=== PATIENT | female | born 1965 | race Caucasian/White ===

== ENCOUNTER 2023-03-10 13:41 | Outpatient (OUT) | payer BC, SELFPAY | END 2023-03-10 13:42 | disposition home or self-care (01) | LOC: PST 13:41 | PROVIDERS: PCP Internal Medicine; Visit Provider Surgery | DX: Z01.818 Encounter for other preprocedural examination (principal); Z12.11 Encounter for screening for malignant neoplasm of colon ==

== ENCOUNTER 2023-03-18 06:59 | Day surgery (SDC) | payer BC, SELFPAY ==
--- NOTE | 2023-03-18 | OP_ITS ---
OPERATION DATE: ??03/18/2023 PREOPERATIVE DIAGNOSIS:? Colorectal screening. POSTOPERATIVE DIAGNOSIS:? Hypertrophic anal papilla. PROCEDURE:? Colonoscopy to cecum. SURGEON:? Dell Strange M.D. ANESTHESIA:? Monitored anesthesia care. ESTIMATED BLOOD LOSS:? Zero. INDICATIONS AND CONSENT:? Patient is a 57-year-old male presents for colorectal screening.? Indications, risks, benefits, alternatives of proceeding with colonoscopy were explained extensively to the patient, including the risks of bleeding, colon perforation or anesthetic complications.? All of her questions were answered.? Informed consent was obtained. PROCEDURE:? Patient brought to the operating room, placed in the left lateral decubitus position.? Monitored anesthesia care was provided.? Rectal exam was performed which showed no masses or blood.? The scope was inserted into the anal canal.? Under direct visualization was advanced.? It was advanced to the cecum, with the aid of abdominal compression.? There was noted to be a fair prep with some liquid brown stool and semi-solid stool throughout the colon that was partially irrigated clear.? Cecal marking were clearly identified.? Upon withdrawal of the scope, mucosal surfaces were carefully examined.? There were no mass lesions or polyps.? No inflammatory changes or ulcerations.? No significant diverticulosis.? The scope was retroflexed in the anal canal.? There was noted to be an elongated hypertrophic anal papilla without inflammation or bleeding, some prominent rectal veins.? The scope was then withdrawn.? Patient tolerated the procedure well, was sent to recovery room in good condition. f/u screening colonoscopy should be in 10 years. CC:? Dr. Matt BALLARD
[2023-03-18 07:22] VITALS: BP 123/70; PULSE 89; RESP 16; TEMP 36.2; O2SAT 97; BMI 35.7
[2023-03-18 07:29] LABS: Glucometer 225 mg/dL (74-106)
[2023-03-18] MEDS: LACTATED RINGER'S SOLUTION 1,000 ML 50 ML IV (07:29)
--- NOTE | 2023-03-18 08:36 | PC.NURSE ---
Dr. Strange aware of pre-op blood glucose. No new orders received.
[2023-03-18 09:03] VITALS: BP 89/64; PULSE 80; RESP 16; O2SAT 96
[2023-03-18 09:17] VITALS: BP 82/66; PULSE 89; RESP 16; O2SAT 97
[2023-03-18 09:33] VITALS: BP 100/74; PULSE 84; RESP 16; O2SAT 97
== END 2023-03-18 09:33 | disposition home or self-care (01) ==
PROVIDERS: PCP Internal Medicine; Visit Provider Surgery
PROC: (CPT 45378; principal; 2023-03-18 08:20)
DX: Z12.11 Encounter for screening for malignant neoplasm of colon (principal); I10 Essential (primary) hypertension; F41.1 Generalized anxiety disorder; K21.9 Gastro-esophageal reflux disease without esophagitis; E78.2 Mixed hyperlipidemia; E66.9 Obesity, unspecified; Z68.37 Body mass index [BMI] 37.0-37.9, adult; E11.9 Type 2 diabetes mellitus without complications; Z79.82 Long term (current) use of aspirin; Z87.891 Personal history of nicotine dependence; Z90.710 Acquired absence of both cervix and uterus; Z79.4 Long term (current) use of insulin; D12.9 Benign neoplasm of anus and anal canal
CPT/HCPCS: 45378; 36415; 82948; J2704

== ENCOUNTER 2023-09-10 07:58 | Outpatient (OUT) | payer BC, SELFPAY ==
[2023-09-10 11:48] LABS: Glycohemoglobin A1C >14.0 % (4.5-6.2)
== END 2023-09-10 07:59 | disposition home or self-care (01) ==
LOC: LAB 07:59
PROVIDERS: PCP Internal Medicine; Visit Provider Internal Medicine
DX: E11.65 Type 2 diabetes mellitus with hyperglycemia (principal)
CPT/HCPCS: 36415; 83036

== ENCOUNTER 2024-01-13 08:24 | Outpatient (OUT) | payer BC, SELFPAY ==
[2024-01-13 11:31] LABS: Estimated Average Glucose 163 mg/dL; Glycohemoglobin A1C 7.3 % (4.5-6.2)
== END 2024-01-13 08:25 | disposition home or self-care (01) ==
LOC: LAB 08:26
PROVIDERS: PCP Internal Medicine; Visit Provider Internal Medicine
DX: E11.65 Type 2 diabetes mellitus with hyperglycemia (principal)
CPT/HCPCS: 36415; 83036

== ENCOUNTER 2024-10-14 07:45 | Outpatient (OUT) | payer BC, SELFPAY ==
--- NOTE | 2024-10-14 08:08 | MM_ITS ---
Patient Name: ALMA ROSA PORTILLO MR#: [id number] : 1965 Exam Date: 10/14/2024 Ordering Doctor: DR ERON RIZZO D.O. RADIOLOGY REPORT PROCEDURE: MM TOMOSYNTHESIS SCREENING BI COMPARISON: MG MAMM SCREEN ASHA W CAD, 04/21/2019. MG MAMM SCREEN ASHA W CAD, 04/09/2018. MG MAMM SCREEN ASHA W CAD, 03/25/2017. INDICATIONS: Screenig Calculator Name NCI Breast Cancer Risk Assessment Tool 5 Year Breast Cancer Risk 1.70% Lifetime Breast Cancer Risk 8.70% Personal Breast Cancer No Personal Ovarian Cancer No Treatments None Family Cancers Mother with ovarian cancer at age 82; Father with leukemia cancer at age 59. LOCATION: [facility] [place] BREAST COMPOSITION: There are scattered areas of fibroglandular density. FINDINGS: DIAGNOSTIC CATEGORY 1--NEGATIVE. RIGHT BREAST: No significant suspicious finding. LEFT BREAST: No significant suspicious finding. RECOMMENDATIONS: ROUTINE MAMMOGRAM AND CLINICAL EVALUATION IN 12 MONTHS. PLEASE NOTE: A NORMAL MAMMOGRAM DOES NOT EXCLUDE THE POSSIBILITY OF BREAST CANCER. A CLINICALLY SUSPICIOUS PALPABLE LUMP SHOULD BE BIOPSIED. Dictated by: Sivakumar Rodriguez DO on 10/14/2024 at 15:50 Approved by: Sivakumar Rodriguez DO on 10/14/2024 at 15:52
== END 2024-10-14 07:46 | disposition home or self-care (01) ==
LOC: MAMMO 07:45
PROVIDERS: PCP Internal Medicine; Visit Provider Internal Medicine
DX: Z12.31 Encounter for screening mammogram for malignant neoplasm of breast (principal); Z80.41 Family history of malignant neoplasm of ovary; Z80.6 Family history of leukemia
CPT/HCPCS: 77063; 77067

== ENCOUNTER 2024-10-14 08:09 | Outpatient (OUT) | payer BC, SELFPAY ==
[2024-10-14 08:43] LABS: Estimated Average Glucose 160 mg/dL; Glycohemoglobin A1C 7.2 % (4.5-6.2)
[2024-10-14 08:47] LABS: Microalbum Creatinine Ratio Ur 5.5 mg/g (0.0-29.9); Microalbumin Urine Random 1.3 mg/dL (<=30.0)
[2024-10-14 09:02] LABS: Basophils Absolute Auto 0.1 10^3/uL (0.0-0.1); Basophils Percent Auto 0.9 % (0.2-2.0); Eosinophils Absolute Auto 0.1 10^3/uL (0.0-0.7); Eosinophils Percent Auto 1.6 % (0.9-7.0); Hematocrit 40.4 % (36.0-48.0); Hemoglobin 12.9 g/dL (12.0-16.0); Immature Granulocytes Abs Auto 0.01 10^3/uL (0.00-0.03); Immature Granulocytes Pct Auto 0.1 % (0.0-0.5); Lymphocytes Absolute Auto 2.5 10^3/uL (1.2-3.8); Lymphocytes Percent Auto 30.2 % (20.5-60.0); Mean Corpuscular HGB Conc 31.9 g/dL (29.9-35.2); Mean Corpuscular Hemoglobin 24.5 pg (26.7-34.0); Mean Corpuscular Volume 76.8 fL (81.0-99.0); Mean Platelet Volume 9.7 fL (9.5-13.5); Monocytes Absolute Auto 0.6 10^3/uL (0.3-0.8); Monocytes Percent Auto 7.6 % (1.7-12.0); Neutrophils Absolute Auto 4.9 10^3/uL (1.4-6.5); Neutrophils Percent Auto 59.6 % (43.0-75.0); Platelet Count 296 10^3/uL (150-450); Red Blood Count 5.26 10^6/uL (4.20-5.40); Red Cell Distribution Width 14.9 % (11.0-15.0); White Blood Count 8.2 10^3/uL (4.0-11.0)
[2024-10-14 10:06] LABS: Alanine Aminotransferase 83 U/L (14-59); Albumin Globulin Ratio 0.8; Albumin Level 3.5 g/dL (3.4-5.0); Alkaline Phosphatase 120 U/L (46-116); Anion Gap 13.5; Aspartate Amino Transferase 78 U/L (15-37); BUN Creatinine Ratio 11.5; Bilirubin Total 0.7 mg/dL (0.2-1.0); Calcium 9.4 mg/dL (8.5-10.1); Carbon Dioxide 29.7 mmol/L (21.0-32.0); Chloride 98 mmol/L (98-107); Chol HDL Ratio 3.2; Cholesterol 182 mg/dL (<=200); Estimated GFR (African America >60 (>=60 mL/min/1.73m^2); Estimated GFR (Non-African Ame 54 (>=60 mL/min/1.73m^2); Globulin 4.3 g/dL; Glucose 156 mg/dL (74-106); HDL Cholesterol 56 mg/dL (40-60); Potassium 4.2 mmol/L (3.5-5.1); Sodium 137 mmol/L (136-145); Thyroid Stimulating Hormone 3.213 uIU/mL (0.358-3.740); Total Protein 7.8 g/dL (6.4-8.2); Triglycerides 115 mg/dL (<=150)
== END 2024-10-14 08:10 | disposition home or self-care (01) ==
LOC: LAB 08:11
PROVIDERS: PCP Internal Medicine; Visit Provider Internal Medicine
DX: Z00.00 Encounter for general adult medical examination without abnormal findings (principal); Z12.31 Encounter for screening mammogram for malignant neoplasm of breast; Z80.41 Family history of malignant neoplasm of ovary; Z80.6 Family history of leukemia
CPT/HCPCS: 36415; 77063; 77067; 80053; 80061; 82043; 82570; 83036; 84443; 85025